=== PATIENT | female | born 1970 | race American Indian/Alaskan Native ===

== ENCOUNTER 2016-06-17 22:58 | Emergency (ER) | payer OTHER ==
[2016-06-18 02:02] LABS: Basophils % (Auto) 0.2 % (0.0-1.8); Eosinophils % (Auto) 3.9 % (0.0-4.3); Hemoglobin 11.7 gm/dl (10.1-14.3); Mean Corpuscular HGB Conc 33 % (30-34); Mean Corpuscular Hemoglobin 30 pg (28-32); Mean Corpuscular Volume 90 fl (79-97); Platelet Count 289 K/mm3 (140-440); Red Cell Distribution Width 13.5 % (13.2-15.2); White Blood Count 7.7 K/mm3 (4.5-11.0)
[2016-06-18 02:20] LABS: Anion Gap 14 mmol/L; BUN/Creatinine Ratio 18.75; Blood Urea Nitrogen 15 mg/dL (7-17); Calcium 8.6 mg/dL (8.4-10.2); Carbon Dioxide 23 mmol/L (22-30); Chloride 104.8 mmol/L (98-107); Glucose 92 mg/dL (65-100); Potassium 3.7 mmol/L (3.6-5.0); Sodium 138 mmol/L (137-145)
[2016-06-18] MEDS ORDERED: DELTASONE PO ONE (04:56)
[2016-06-18] MEDS ORDERED: BENADRYL PO ONE (04:56)
[2016-06-18] MEDS ORDERED: TYLENOL PO ONE (04:56)
--- NOTE | 2016-06-18 05:03 | Emergency Department Report ---
HPI - General Chief Complaint: Allergic Reaction Time Seen by Provider: 06/18/16 04:42 - HPI HPI: The patient's is a 45 yo female with a history of asthma, whom presents for evaluation of allergic reaction. The patient reports sudden onset of severe itching in quality rash to the arms and legs, shortness of breath and wheezing, bilateral anterior chest pain at 10 PM earlier tonight, > 4 hours prior to my evaluation. She states that her chest pain was tight in quality, severe, constant, exacerbated with deep breaths. She states that her symptoms began after eating fish. The patient denies dysphagia, stridor, drooling, difficulty tolerating secretions, dysphonia, hoarseness of voice, abdominal pain. ED Past Medical Hx - Past Medical History Hx Asthma: Yes - Social History Smoking Status: Never Smoker Substance Use Type: None - Medications Home Medications: Home Medications Medication Instructions Recorded Confirmed Last Taken Type ALBUTEROL Inhaler [ProAir HFA 2 puff IH QID PRN #1 unit 01/16/13 Unknown Rx Inhaler] Primitine Mist 01/16/13 01/16/13 Unknown History predniSONE [Deltasone] 40 mg PO DAILY #4 day 01/16/13 Unknown Rx predniSONE [Deltasone] 50 mg PO QDAY #4 tab 01/16/13 Unknown Rx ALBUTEROL NEB's [Proventil 0.083% 2.5 mg IH Q4H PRN #25 neb 10/10/14 Unknown Rx NEBS] Albuterol Sulfate [Ventolin HFA] 2 puff IH Q4H PRN #1 hfa.aer.ad 10/10/14 Unknown Rx predniSONE [Deltasone] 20 mg PO BID #10 tab 10/10/14 Unknown Rx Diphenhydramine HCl [Benadryl 25 mg PO Q8HR #20 tablet 06/18/16 Unknown Rx Allergy TAB] EPINEPHrine (NF) [Epipen (Nf)] 0.3 mg IM ONCE #1 syringekit 06/18/16 Unknown Rx predniSONE [Deltasone] 20 mg PO QDAY #2 tab 06/18/16 Unknown Rx ED Review of Systems ROS: Stated complaint: CHEST PAIN/ALLERGIC REACTION Other details as noted in HPI Constitutional: denies: fever ENT: denies: throat or neck pain Respiratory: denies: cough reports shortness of breath Cardiovascular: reports chest pain Endocrine: denies unexplained weight loss or gain Gastrointestinal: denies: abdominal pain, nausea Genitourinary: denies: dysuria Musculoskeletal: denies: leg swelling Skin: reports rash Neurological: denies: headache Hematological/Lymphatic: denies: easy bleeding or easy bruising Psych: denies sadness or hopelessness Physical Exam - Physical Exam Vital Signs: Vital Signs 06/18/16 06/18/16 00:08 01:05 Temperature 98.4 F 98.4 F Pulse Rate 83 83 Respiratory 20 20 Rate Blood Pressure 122/71 Blood Pressure 122/71 [Right] O2 Sat by Pulse 100 100 Oximetry Physical Exam: General: well-nourished, well-developed, no acute distress Head: Normocephalic, atraumatic Eyes: normal sclera ENT: Mucous membranes are pink and moist, no pooling of secretions in the posterior oropharynx, no stridor Neck: trachea midline, neck supple, No neck stiffness, no cervical adenopathy Respiratory: Breath sounds equal bilaterally, no wheezing, rales, or rhonchi Cardio: S1 and S2 present, no murmurs, rubs, gallops, capillary refill is brisk Abdomen: Normoactive bowel sounds, soft abdomen, no rigidity, no guarding or rebound tenderness Musc: No pitting edema Skin: Small blanching red circular macular papules present to the proximal bilateral upper and lower extremities Neuro: no facial drooping, normal speech Psych: Normal affect ED Course Vital Signs 06/18/16 06/18/16 00:08 01:05 Temperature 98.4 F 98.4 F Pulse Rate 83 83 Respiratory 20 20 Rate Blood Pressure 122/71 Blood Pressure 122/71 [Right] O2 Sat by Pulse 100 100 Oximetry ED Medical Decision Making - Lab Data Result diagrams: 06/18/16 01:47 06/18/16 01:47 - Medical Decision Making The patient was seen and examined by myself. 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 On initial evaluation, the patient was found to be in no distress. Evaluation orders were placed. Patient given a tablet of prednisone and Benadryl for her allergic reaction. She'll given a tablet of Tylenol for her chest pain. EKG is unremarkable. Lab results are unremarkable including normal troponin level x2. The patient was reevaluated and reported that their symptoms were markedly improved. The patient is stable for discharge with outpatient follow-up. The patient is given follow-up and return instructions. The patient expressed understanding and agreed with the plan. The patient is discharged in stable condition. Critical care attestation.: If time is entered above; I have spent that time in minutes in the direct care of this critically ill patient, excluding procedure time. ED Disposition Clinical Impression: Acute chest pain Allergic reaction to food Qualifiers: Encounter type: initial encounter Qualified Code(s): T78.1XXA - Other adverse food reactions, not elsewhere classified, initial encounter Anaphylactic reaction Qualifiers: Encounter type: initial encounter Qualified Code(s): T78.2XXA - Anaphylactic shock, unspecified, initial encounter Disposition: DISCHARGED TO HOME OR SELFCARE Is pt being admited?: No Does the pt Need Aspirin: No Condition: Stable Instructions: Anaphylaxis (ED), Food Allergy (ED), Chest Pain (ED) Prescriptions: Diphenhydramine HCl [Benadryl Allergy TAB] 25 mg PO Q8HR #20 tablet EPINEPHrine (NF) [Epipen (Nf)] 0.3 mg IM ONCE #1 syringekit predniSONE [Deltasone] 20 mg PO QDAY #2 tab Referrals: PRIMARY CARE, [Primary Care Provider] - 3-5 Days Time of Disposition: 04:56
[2016-06-18 05:40] VITALS: BP 118/60
== END 2016-06-18 05:05 | disposition home or self-care (01) ==
LOC: ED 22:58
DX: T78.1XXA Other adverse food reactions, not elsewhere classified, initial encounter (principal); T78.2XXA Anaphylactic shock, unspecified, initial encounter; R07.9 Chest pain, unspecified; J45.909 Unspecified asthma, uncomplicated
CPT/HCPCS: 36415; 80048; 84484; 85025; 93005; 93010; 99284; J7512